=== PATIENT | female | born 1990 | race African-American/Black ===

== ENCOUNTER 2023-06-14 11:58 | Emergency (ER) | payer MEDICAID ==
[~2023-06-14] VITALS: Ht 106.7 cm; Wt 36.0 kg
[2023-06-14 12:02] VITALS: BP 144/69; PULSE 86; RESP 16; TEMP 98; O2SAT 99
== END 2023-06-14 15:43 | disposition home or self-care (01) ==
LOC: ER 12:10
DX: M54.2 Cervicalgia (principal); V49.9XXA Car occupant (driver) (passenger) injured in unspecified traffic accident, initial encounter; Y93.89 Activity, other specified; Y92.89 Other specified places as the place of occurrence of the external cause; Y99.8 Other external cause status
CPT/HCPCS: 99284